=== PATIENT | female | born 1995 | race Caucasian/White ===

== ENCOUNTER 2020-10-20 17:10 | Emergency (ER) | payer SELFPAY ==
[~2020-10-20] VITALS: Ht 160 cm; Wt 80.7 kg
[2020-10-20 17:18] VITALS: Ht 160 cm; Wt 80.7 kg
[2020-10-20 18:21] LABS: UA SPECIFIC GRAVITY >=1.030 (1.005-1.035); microscopic required? YES; urine erythrocyte 3+ (NEGATIVE)
[2020-10-20 18:22] LABS: BASOPHIL % 0.6 % (0.2-1.3); PLATELET COUNT 341 x10^3mcL (179-408); RED CELL DISTRIBUTION WIDTH 12.6 % (12.3-17.7)
[2020-10-20 21:52] VITALS: BP 119/72
== END 2020-10-20 21:52 | disposition home or self-care (01) ==
LOC: ED 17:10
PROVIDERS: Emergency Medicine
DX: O20.0 Threatened abortion (principal); Z3A.08 8 weeks gestation of pregnancy
CPT/HCPCS: J1460